=== PATIENT | female | born 1965 | race Caucasian/White ===

== ENCOUNTER 2019-10-20 10:19 | Day surgery (SDC) | payer OTHER, MEDICAID ==
[~2019-10-20] VITALS: Ht 157.5 cm; Wt 114.3 kg
[~2019-10-20 10:19] MED LIST: ATOR20TA50 PO; CYCL1TAB18 PO; GABA-339 PO; GLIP10TA9 PO; HYDR-531 PO; METF-929 PO; METH750T3 PO; NAP500T PO; SITA50TA PO
[2019-10-20] MEDS ORDERED: IODIXANOL 320MG/ML 100ML BTL IV ONE (11:46)
[2019-10-20] MEDS ORDERED: LIDOCAINE 2%HCL (LOCAL ANESTH.) INJ 20ML MDV ONE (11:46)
[2019-10-20] MEDS ORDERED: fentaNYL CITRATE 100 MCG/2 ML VL ONE (12:19)
[2019-10-20] MEDS ORDERED: HEPARIN SODIUM (PORCINE) 5000 UNITS/ML 1ML VIAL ONE (12:19)
[2019-10-20] MEDS ORDERED: VERAPAMIL 2.5MG/ML INJ 2ML VIAL IV ONE (12:19)
[2019-10-20] MEDS ORDERED: ANGIOMAX 250 MG VIAL IV ONE (12:19)
[2019-10-20] MEDS ORDERED: SODIUM CHL 0.9% 0 ML ONE (12:20)
[2019-10-20] MEDS ORDERED: MIDAZOLAM HCL 1MG/1ML-2 ML VIAL ONE (12:20)
== END 2019-10-20 15:05 | disposition home or self-care (01) ==
LOC: CATH 10:19
PROVIDERS: ATTEND Internal Medicine
DX: R94.39 Abnormal result of other cardiovascular function study (principal); E78.5 Hyperlipidemia, unspecified; E11.9 Type 2 diabetes mellitus without complications; Z79.84 Long term (current) use of oral hypoglycemic drugs; Z87.891 Personal history of nicotine dependence; Z79.899 Other long term (current) drug therapy
CPT/HCPCS: 93005; 93458; C1769; C1894; J1644; J2250; J3010; J7030; Q9967; 99152